=== PATIENT | female | born 1985 | race Hispanic/Latino ===

== ENCOUNTER 2022-02-15 07:30 | Day surgery (SDC) | payer OTHER ==
[2022-02-15] VITALS (8 sets, daily range): BP systolic 83–119; BP diastolic 35–75
[~2022-02-15] VITALS: Ht 165.1 cm; Wt 78.0 kg
[2022-02-15] MEDS ORDERED: 0.9%NACL 1000ML 1,000 ML IV ONE (08:42)
[2022-02-15] MEDS ORDERED: HYOS-28 PO (08:56)
[2022-02-15] MEDS ORDERED: COLE1TAB2 PO (08:56)
[2022-02-15] MEDS ORDERED: ACET-2743 PO (08:56)
[2022-02-15] MEDS ORDERED: PROPOFOL 10 MG/ML 20ML VIAL IV ONE ×2 (11:01→11:15)
[2022-02-15] MEDS ORDERED: LIDOCAINE PF 100MG/5ML (2%) SYRINGE 5ML ONE (11:03)
== END 2022-02-15 12:00 | disposition home or self-care (01) ==
LOC: DAH 07:30
PROVIDERS: ATTEND Surgery
DX: R10.30 Lower abdominal pain, unspecified (principal); K29.70 Gastritis, unspecified, without bleeding; K44.9 Diaphragmatic hernia without obstruction or gangrene; K21.9 Gastro-esophageal reflux disease without esophagitis; K22.89 Other specified disease of esophagus; R19.7 Diarrhea, unspecified; E42 Marasmic kwashiorkor; F41.9 Anxiety disorder, unspecified; F32.A Depression, unspecified; E03.9 Hypothyroidism, unspecified; Z90.49 Acquired absence of other specified parts of digestive tract; Z98.84 Bariatric surgery status; Z98.891 History of uterine scar from previous surgery
CPT/HCPCS: 43239; 81025; 87635; A4215 ×2; A4221; A4222; A4223; A4606; A4620; A4657; A4663; C9803; J2001; J2704 ×2; J7030